=== PATIENT | female | born 1975 | race Caucasian/White ===

== ENCOUNTER 2020-01-13 16:10 | Emergency (ER) | payer OTHER ==
[~2020-01-13] VITALS: Ht 162.6 cm; Wt 63.5 kg
[2020-01-13] MEDS ORDERED: LEXAPRO 10 MG T10 MG PO (16:22)
[2020-01-13 17:56] VITALS: BP 124/68
== END 2020-01-13 17:58 | disposition home or self-care (01) ==
LOC: ER 16:10
DX: R04.0 Epistaxis (principal); Z79.899 Other long term (current) drug therapy